=== PATIENT | female | born 1960 | race Caucasian/White ===

== ENCOUNTER 2021-01-24 08:38 | Observation (INO) | payer OTHER ==
[~2021-01-24] VITALS: Ht 162.6 cm; Wt 53.1 kg
[2021-01-24 09:34] LABS: HEMOGLOBIN 17.8 gm/dl (12.3-15.3); RED BLOOD COUNT 4.75 M/UL (4.00-5.10); WHITE BLOOD COUNT 5.8 K/UL (4.5-11.0)
[2021-01-24 09:56] LABS: BUN/CREATININE RATIO 15 (0-10)
[2021-01-24] MEDS ORDERED: ONDANSETRON HCL4 MG PO (17:54)
[2021-01-24] MEDS ORDERED: PROMETHAZINE12.5 M1 PO (17:55)
[2021-01-24] MEDS ORDERED: LISINOPRIL20 MG PO (17:55)
[2021-01-24] MEDS ORDERED: CLOTRIMAZOLE10 MG MM (17:56)
[2021-01-24] MEDS ORDERED: FOLIC ACID1 MG PO (17:57)
[2021-01-24] MEDS ORDERED: TRAMADOL HCL50 MG PO (17:57)
[2021-01-24] MEDS ORDERED: AMARYL2 MG PO (17:58)
[2021-01-24] MEDS ORDERED: MAGNESIUM OXID400 M1 PO (17:58)
[2021-01-24] MEDS ORDERED: KLOR-CON M2020 MEQ PO (17:59)
[2021-01-24] MEDS ORDERED: LANTUS SOL100 UNIT/1 INJ (18:01)
[2021-01-24] MEDS ORDERED: SERTRALINE HCL50 MG PO (18:02)
[2021-01-24] MEDS ORDERED: PROTONIX40 MG PO (18:02)
[2021-01-24] MEDS ORDERED: DITROPAN XL10 MG PO (18:02)
[2021-01-24] MEDS ORDERED: B COMPLEX1 EACH PO (18:03)
[2021-01-24] MEDS ORDERED: DAILY VALUE1 EACH PO (18:03)
[2021-01-25 07:39] LABS: WHITE BLOOD COUNT 5.8 K/UL (4.5-11.0)
[2021-01-25 07:40] LABS: HEMOGLOBIN 13.9 gm/dl (12.3-15.3); RED BLOOD COUNT 3.92 M/UL (4.00-5.10)
[2021-01-25 08:00] LABS: BUN/CREATININE RATIO 14 (0-10)
[2021-01-26 08:16] LABS: HEMOGLOBIN 13.7 gm/dl (12.3-15.3); RED BLOOD COUNT 3.79 M/UL (4.00-5.10)
[2021-01-26 08:34] LABS: BUN/CREATININE RATIO 13 (0-10)
[2021-01-26] MEDS ORDERED: ZOFRAN ODT 4 MG4 MG PO (11:40)
[2021-01-26] MEDS ORDERED: MYCOSTATIN100000 UTS PO (11:40)
[2021-01-26] MEDS ORDERED: ACETAMINOPHEN500 MG PO (11:40)
== END 2021-01-26 15:35 | disposition home or self-care (01) ==
LOC: ER1 08:38 → CDU 14:42 → MED SURG 4 14:42
PROVIDERS: Physician Assistant; ADMIT Internal Medicine
DX: N30.00 Acute cystitis without hematuria (principal); R11.2 Nausea with vomiting, unspecified; K21.9 Gastro-esophageal reflux disease without esophagitis; E11.65 Type 2 diabetes mellitus with hyperglycemia; E87.1 Hypo-osmolality and hyponatremia; R74.01 Elevation of levels of liver transaminase levels; D75.89 Other specified diseases of blood and blood-forming organs; I10 Essential (primary) hypertension; D75.1 Secondary polycythemia; E78.5 Hyperlipidemia, unspecified; F17.210 Nicotine dependence, cigarettes, uncomplicated; Z88.5 Allergy status to narcotic agent; Z88.1 Allergy status to other antibiotic agents; Z88.8 Allergy status to other drugs, medicaments and biological substances; Z79.4 Long term (current) use of insulin; Z79.899 Other long term (current) drug therapy; Z20.822 Contact with and (suspected) exposure to COVID-19
CPT/HCPCS: 36415; 36600; 71045; 80048; 80053; 81001; 82009; 82550; 82553; 82803; 82962; 83690; 83735; 83874; 84439; 84443; 84484; 85025; 87086; 93005; 96374; 96375; 96376; 99285; C9113; G0378; J0696; J0780; J2405; J7030; U0002